=== PATIENT | male | born 1970 | race Caucasian/White ===

== ENCOUNTER 2018-06-04 13:41 | Emergency (ER) | payer SELFPAY ==
[~2018-06-04] VITALS: Wt 77.3 kg
[2018-06-04 13:50] VITALS: BP 178/84; PULSE 92; RESP 20
== END 2018-06-04 14:05 | disposition left against medical advice (07) ==
LOC: FTE 13:41
DX: Z53.21 Procedure and treatment not carried out due to patient leaving prior to being seen by health care provider (principal)